=== PATIENT | female | born 1980 | race Caucasian/White ===

== ENCOUNTER 2018-11-22 14:58 | Inpatient (IN) | payer BC ==
[~2018-11-22] VITALS: Ht 170.2 cm; Wt 86.0 kg
[2018-11-22 15:33] VITALS: BP 143/99
[2018-11-22] MEDS ORDERED: LACTATED RINGERS 1,000 ML IV SCH (15:55)
[2018-11-22] MEDS ORDERED: HYDR25CA PO (16:00)
[2018-11-22] MEDS ORDERED: MIDAZOLAM 1 MG/ML, 2ML ONE (17:14)
[2018-11-22] MEDS ORDERED: FENTANYL PF 250 MCG/5ML ONE (17:14)
[2018-11-22] MEDS ORDERED: PROPOFOL 10 MG/ML, 20ML ONE (17:26)
[2018-11-22] MEDS ORDERED: DEXAMETHASONE 4 MG/ML, 1ML ONE (17:26)
[2018-11-22] MEDS ORDERED: ONDANSETRON 2MG/ML, 2ML ONE (17:26)
[2018-11-22] MEDS ORDERED: CEFAZOLIN 1,000 MG ONE (17:26)
[2018-11-22] MEDS ORDERED: HALOPERIDOL 5 MG/ML IV PRN (17:30)
[2018-11-22] MEDS ORDERED: MORPHINE SULFATE 4 MG/ML, 1ML IVPush PRN (17:30)
[2018-11-22] MEDS ORDERED: hydrALAzine 20 MG/ML, 1ML IV PRN (17:30)
[2018-11-22] MEDS ORDERED: PROMETHAZINE 25 MG/ML, 1ML IM PRN ×2 (17:30)
[2018-11-22] MEDS ORDERED: PROMETHAZINE 25 MG SUPP PR PRN (17:30)
[2018-11-22] MEDS ORDERED: PROMETHAZINE 25 MG/ML, 1ML IV PRN (17:30)
[2018-11-22] MEDS ORDERED: PROMETHAZINE 12.5 MG SUPP PR PRN (17:30)
[2018-11-22] MEDS ORDERED: OXYcodone 5 MG/5 ML ORAL.SOL UDC PO PRN (17:30)
[2018-11-22] MEDS ORDERED: ONDANSETRON 2MG/ML, 2ML IV PRN ×2 (17:30→20:30)
[2018-11-22] MEDS ORDERED: ACETAMINOPHEN 325 MG TABLET PO PRN (17:30)
[2018-11-22] MEDS ORDERED: LABETALOL 5MG/ML, 20ML IV PRN (17:30)
[2018-11-22] MEDS ORDERED: ONDANSETRON ODT 8 MG PO PRN (17:30)
[2018-11-22] MEDS ORDERED: MEPERIDINE/PF 25MG/0.5ML IVPush PRN (17:30)
[2018-11-22] MEDS ORDERED: BUPIVACAINE/PF 0.5% ONE (17:45)
[2018-11-22] MEDS ORDERED: BACITRACIN OINT 500U/GM, 15 GM ONE (17:53)
[2018-11-22] MEDS ORDERED: OXYcodone 5 MG/5 ML ORAL.SOL UDC ONE (18:18)
[2018-11-22] MEDS ORDERED: MEPERIDINE/PF 25MG/ML,1ML ONE (18:18)
[2018-11-22] MEDS ORDERED: FENTANYL PF 100 MCG/2ML ONE ×2 (18:18→19:05)
[2018-11-22] MEDS: FENTANYL PF 100 MCG/2ML IV PRN ×4 (18:25→19:12)
[2018-11-22] MEDS ORDERED: VANCOMYCIN PMX 1GM/200ML 200 ML IV ONE (18:30)
[2018-11-22] MEDS ORDERED: AMPICILLIN/SULBACTAM 1,500 MG in SODIUM CHLORIDE 0.9% 50 ML IV ONE (18:30)
[2018-11-22] MEDS ORDERED: HYDROmorphone 2 MG/ML, 1ML ONE (18:30)
[2018-11-22] MEDS: HYDROmorphone 2 MG/ML, 1ML IVPush PRN ×4 (18:35→18:58)
[2018-11-22] MEDS ORDERED: HALOPERIDOL 5 MG/ML ONE (19:12)
[2018-11-22] MEDS ORDERED: MORPHINE SULFATE 4 MG/ML, 1ML ONE (19:18)
[2018-11-22] MEDS ORDERED: VANCOMYCIN PER PHARMACY MC PRN (20:30)
[2018-11-22] MEDS ORDERED: PHARMACOKINETIC MONITORING MC PRN (21:00)
[2018-11-22] MEDS ORDERED: PHARMACOKINETIC CONSULTATION MC ONE (21:00)
[2018-11-22] MEDS ORDERED: ZOLPIDEM 5MG TABLET PO PRN (21:00)
[2018-11-22] MEDS: KETOROLAC 30 MG/1 ML IV SCH (22:19)
[2018-11-22] MEDS: D5%-LACTATED RINGERS 1,000 ML IV SCH (22:19)
[2018-11-23] MEDS: AMPICILLIN/SULBACTAM 3 GM in SODIUM CHLORIDE 0.9% 100 ML IV SCH ×4 (00:32→18:14)
[2018-11-23 01:14] VITALS: BP 169/109
[2018-11-23 01:59] VITALS: BP 131/87
[2018-11-23] MEDS: HYDROcodone/APAP 7.5-325MG/15ML UDC PO PRN ×2 (01:59→15:01)
[2018-11-23] MEDS: VANCOMYCIN 1,500 MG in SODIUM CHLORIDE 0.9% 250 ML IV SCH ×2 (02:04→14:18)
[2018-11-23] MEDS: KETOROLAC 30 MG/1 ML IV SCH ×2 (04:54→12:11)
[2018-11-23 05:39] LABS: CREATININE 0.95 mg/dL (0.55-1.02)
[2018-11-23 06:25] VITALS: BP 137/73
[2018-11-23 13:02] VITALS: BP 99/63
[2018-11-23] MEDS: D5%-LACTATED RINGERS 1,000 ML IV SCH (16:04)
[2018-11-23 18:30] VITALS: BP 130/85
[2018-11-24] MEDS: AMPICILLIN/SULBACTAM 3 GM in SODIUM CHLORIDE 0.9% 100 ML IV SCH ×4 (00:13→17:57)
[2018-11-24 00:18] VITALS: BP 137/86
[2018-11-24] MEDS: VANCOMYCIN 1,500 MG in SODIUM CHLORIDE 0.9% 250 ML IV SCH ×2 (02:13→14:27)
[2018-11-24 06:57] VITALS: BP 140/97
[2018-11-24] MEDS: HYDROcodone/APAP 7.5-325MG/15ML UDC PO PRN ×3 (11:29→20:26)
[2018-11-24] MEDS: D5%-LACTATED RINGERS 1,000 ML IV SCH (12:30)
[2018-11-24 14:33] VITALS: BP 135/96
[2018-11-24 19:06] VITALS: BP 105/68
[2018-11-25] MEDS: AMPICILLIN/SULBACTAM 3 GM in SODIUM CHLORIDE 0.9% 100 ML IV SCH ×2 (00:47→06:28)
[2018-11-25 00:50] VITALS: BP 144/88
[2018-11-25] MEDS: VANCOMYCIN 1,500 MG in SODIUM CHLORIDE 0.9% 250 ML IV SCH (02:40)
[2018-11-25 06:38] VITALS: BP 132/84
[2018-11-25] MEDS: HYDROcodone/APAP 7.5-325MG/15ML UDC PO PRN ×3 (07:36→15:55)
[2018-11-25] MEDS ORDERED: DOXY100T PO (08:36)
[2018-11-25] MEDS: D5%-LACTATED RINGERS 1,000 ML IV SCH (08:57)
[2018-11-25] MEDS ORDERED: DOXYCYCLINE 100MG TABLET PO ONE (09:00)
[2018-11-25] MEDS ORDERED: ERTAPENEM 1 GM in SODIUM CHLORIDE 0.9% 50 ML IV ONE (09:00)
[2018-11-25 15:29] VITALS: BP 148/89
[2018-11-25] MEDS ORDERED: DOXYCYCLINE 100MG TABLET PO SCH (21:00)
== END 2018-11-25 16:16 | disposition home or self-care (01) | DRG 581 ==
LOC: OR 14:58 → 4NOR 19:30 → OR 21:35 → DCLOUNGE 11-25 16:00
PROVIDERS: ADMIT Orthopaedic Surgery; ATTEND Orthopaedic Surgery
PROC: 0LD80ZZ Extraction of Left Hand Tendon, Open Approach (ICD-10-PCS; 2018-11-22)
PROC: 0LQ80ZZ Repair Left Hand Tendon, Open Approach (ICD-10-PCS; principal; 2018-11-22 17:00)
PROC: 02HV33Z Insertion of Infusion Device into Superior Vena Cava, Percutaneous Approach (ICD-10-PCS; 2018-11-25)
PROC: B5181ZA Fluoroscopy of Superior Vena Cava using Low Osmolar Contrast, Guidance (ICD-10-PCS; 2018-11-25)
PROC: B548ZZA Ultrasonography of Superior Vena Cava, Guidance (ICD-10-PCS; 2018-11-25)
DX: S61.255A Open bite of left ring finger without damage to nail, initial encounter (principal); Y04.1XXA Assault by human bite, initial encounter; Y93.89 Activity, other specified; Y99.8 Other external cause status; Y92.89 Other specified places as the place of occurrence of the external cause
CPT/HCPCS: 36415; S0020; 36573; 80202; 81025; 82565; 84520; 87070; 87075; 87205; G0378; J0295; J0690; J1100; J1170; J1335; J1885; J2175; J2250; J2405; J2704; J3010; J3370; C1751; J1630; J7050; J7120